=== PATIENT | male | born 1960 | race Caucasian/White ===

== ENCOUNTER 2025-02-23 08:37 | Emergency (ER) | payer MEDICARE, SELFPAY ==
[2025-02-23 08:42] VITALS: BP 137/80
--- NOTE | 2025-02-23 10:26 | ED.GENMED ---
History of Present Illness
General
Chief Complaint: Swelling
Source: patient
Exam Limitations: none
Time Seen by Provider: 02/23/25 10:19
History of Present Illness
History of Present Illness:
64-year-old male currently receiving chemotherapy for underlying non-small cell lung cancer to [facility] presents complaining of 3 to 4 days worth of atraumatic swelling to the right ankle. No history of gout. He notes a slight
discomfort. The pain is mainly on the medial aspect of the ankle. States it feels warm to the touch. He has been trying Tylenol without significant relief. No chest pain or shortness of breath. No other complaints. Spoke with his oncologist
who advised he come here for evaluation for potential for DVT. He is not anticoagulated
Past History
Past History
ED Past Medical History: HTN
ED Past Surgical History: None
Social History
Tobacco: Non-smoker
Personal:
Living: with family
Phy Exam
Physical Exam
Physical Exam:
General: Well-appearing male no acute respiratory distress
HEENT normal cephalic atraumatic
Musculoskeletal exam: Right ankle slightly swollen tender over the medial aspect of the ankle inferior to the distal tibia. Good range of motion to the ankle. No lymphangitic streaking the calf is nontender
Vascular: 2+ DP pulse right foot
Skin is warm no rash
Scores
Heart Failure Risk
Heart Failure Risk Score: Not Applicable
Course
Orders/Labs/Results
Orders:
Orders
02/23/25 10:25
Venous Doppler Lwr Ext Rt [US Periph Venous LOWER Ext RT] Urgent
Comment:
Reason For Exam: swelling
Vital Signs
Initial and Last Documented VS:
Initial Vital Signs
Temp Pulse Resp BP Pulse Ox
98.4 F 91 18 137/80 99
02/23/25 08:42 02/23/25 08:42 02/23/25 08:42 02/23/25 08:42 02/23/25 08:42
Last Documented Vital Signs
Temp Pulse Resp BP Pulse Ox
98.4 F 91 18 138/57 99
02/23/25 08:42 02/23/25 08:42 02/23/25 08:42 02/23/25 11:24 02/23/25 10:29
MDM/Problems Addressed
Differential Diagnosis Includes:
Atraumatic swelling to the right ankle. Consider sprain versus inflammatory condition such as degenerative joint disease versus gout or DVT given chemo history and ongoing treatment for non-small cell lung cancer. Ultrasound right leg ordered
*Pulse Oximetry
SaO2: 99
Oxygen Mode of Delivery: Room air
Patient hypoxic: no
*Critical Care Note
Total Time (30-74mins, 75-104mins- exclusive of procedures): Not Applicable
Update Note
Update Note:
Negative ultrasound for DVT there is edema in the right ankle. Reinspection does provide a subtle amount of skin changes to the medial right ankle questionable erythema. Concern for possible underlying cellulitis versus inflammatory arthritis.
Will cover with Keflex given the immunosuppression and current chemotherapy treatment but he will follow-up with oncology. No indication for admission. Stable for discharge
ED Attending Note
-
Portions of this chart may have been created with voice recognition software.� Occasional wrong word or��sound alike� substitutions may have occurred due to the inherent limitations of voice recognition software.
Discharge Plan
Departure
Patient Disposition: Home (Routine Discharge)
Date of Disposition: 02/23/25
Time of Disposition: 12:06
Patient with high blood pressure during this ER visit?: No
Discharge Problem:
Right ankle swelling
Instructions: Cellulitis (skin infection) in adults - ED (DC)
Prescriptions:
New
cephalexin 500 mg capsule
500 mg PO Q6H 7 Days Qty: 28 0RF
No Action
losartan 25 MG tablet
50 mg PO DAILY
amlodipine 10 MG tablet
10 mg PO DAILY
hydrochlorothiazide 25 MG tablet
25 mg PO DAILY
aspirin 81 MG tablet,delayed release (DR/EC)
81 mg PO DAILY
ibuprofen [Advil] 200 MG tablet
400 mg PO PRN PRN (Reason: as directed)
atorvastatin 40 MG tablet
40 mg PO DAILY Qty: 30 0RF
Referrals:
Yue Hartman MD [Family Provider, Family Practice]
Activity Restrictions/Additional Instructions:
You may take Tylenol or ibuprofen for pain. Use antibiotic as directed. Return if worse otherwise follow-up with your oncology team
Interventions
Interventions:
*Risk Screen - Suicide Last Done: 02/23/25 08:42
*General Assessment Last Done: 02/23/25 08:42
*Neglect/Abuse Screening Last Done: 02/23/25 08:42
*ED COVID-19 Vaccine History Last Done: 02/23/25 11:25
*ED Influenza Vaccine History Last Done: 02/23/25 08:42
[facility] Fall Risk Assessment Tool Last Done: 02/23/25 10:40
ED- Cardiac Assessment Last Done: 02/23/25 10:41
ED- Pulmonary Assessment Last Done: 02/23/25 10:41
ED-Skin Assessment Last Done: 02/23/25 11:26
Discharge Date and Time
Print Language: [id number]
[2025-02-23 10:40] VITALS: BMI 24.5
[2025-02-23 11:24] VITALS: BP 138/57
== END 2025-02-23 12:16 | disposition home or self-care (01) ==
LOC: EMR 08:37
PROVIDERS: EMERGENCY PHYSICIAN Emergency Medicine; FAMILY PHYSICIAN Family Medicine
DX: R22.41 Localized swelling, mass and lump, right lower limb (principal); C34.90 Malignant neoplasm of unspecified part of unspecified bronchus or lung; I10 Essential (primary) hypertension
CPT/HCPCS: 99284; 93971